=== PATIENT | female | born 1980 | race Hispanic/Latino ===

== ENCOUNTER 2017-08-03 22:15 | Emergency (ER) | payer SELFPAY ==
[~2017-08-03] VITALS: Ht 147.3 cm; Wt 63.2 kg
[~2017-08-03 22:15] MED LIST: MACROBID100 MG OR; ZOFRAN ODT4 MG PO
[2017-08-03 23:15] LABS: HEMATOCRIT 41.1 % (37.0-47.0); HEMOGLOBIN 14.4 g/dl (12.0-16.0); IMMATURE GRANULOCYTES 0.4 % (0.0-1.0); MEAN CELL VOLUME 95.6 fL CALC (80.0-100.0); MEAN CORPUSCULAR HGB 33.5 pG CALC (26.0-32.0); NEUT# 9.96 thou/uL (2.00-7.15); RED BLOOD COUNT 4.3 mill/uL (4.20-5.60); RED CELL DISTRI WIDTH 11.9 % (11.5-15.5)
[2017-08-03 23:28] LABS: ALBUMIN 4.7 g/dL (3.2-5.0); ALKALINE PHOSPHATASE 74 u/l (38-126); AMYLASE 104 u/l (30-110); ANION GAP 16 (6-22 (CALC)); BILIRUBIN, TOTAL 0.5 mg/dL (0.0-1.4); BUN 16 mg/dL (7-17); BUN/CREATININE RATIO 33 (12-20 (CALC)); CALCIUM 9.1 mg/dL (8.4-10.2); CARBON DIOXIDE 22 mmol/l (22-30); CHLORIDE 109 mmol/l (95-108); CREATININE 0.5 mg/dL (0.5-1.0); GFR > 60 ML/MIN (>=60 (CALC)); GFR FOR AFR.AMER. > 60 ML/MIN (>=60 (CALC)); GLUCOSE 96 mg/dL (65-105); LIPASE 88 u/l (23-300); POTASSIUM 3.6 mmol/l (3.5-5.1); SGOT/AST 47 u/l (14-36); SGPT/ALT 66 u/l (9-52); SODIUM 142 mmol/l (137-146)
[2017-08-03 23:51] LABS: URINE BILIRUBIN - DIPSTICK NEGATIVE (NEGATIVE); URINE BLOOD DIPSTICK TRACE-INTACT (NEGATIVE); URINE CLARITY SLIGHT CLOUDY; URINE COLOR YELLOW; URINE GLUCOSE - DIPSTICK NEGATIVE (NEGATIVE); URINE KETONE NEGATIVE (NEGATIVE); URINE LEUK ESTERASE NEGATIVE (NEGATIVE); URINE NITRITE - DIPSTICK NEGATIVE (Negative); URINE PROTEIN - DIPSTICK NEGATIVE (NEG-TRACE); URINE UROBILINOGEN - DIPSTICK 0.2 E.U./dL (0.2)
[2017-08-04] MEDS ORDERED: AUGMENTIN875TAB PO (02:31)
[2017-08-04] MEDS ORDERED: PRILOSEC20 MG PO (02:32)
[2017-08-04 02:54] VITALS: BP 122/69
== END 2017-08-04 02:51 | disposition home or self-care (01) | DRG 392 ==
LOC: ED 22:15
PROVIDERS: Emergency Medicine
DX: R10.12 Left upper quadrant pain (principal); J02.0 Streptococcal pharyngitis; R11.2 Nausea with vomiting, unspecified; R10.13 Epigastric pain; R50.9 Fever, unspecified
CPT/HCPCS: S0164

== ENCOUNTER 2023-06-03 11:39 | Emergency (ER) | payer SELFPAY ==
[~2023-06-03] VITALS: Ht 147.3 cm; Wt 70.4 kg
[2023-06-03] VITALS (11 sets, daily range): BP systolic 82–114; BP diastolic 47–72
[~2023-06-03 11:39] MED LIST changes: +AUGMENTIN875TAB PO; +PRILOSEC20 MG PO
[2023-06-03 13:31] LABS: URINE BILIRUBIN - DIPSTICK Negative (NEGATIVE); URINE COLOR Yellow; URINE GLUCOSE - DIPSTICK Negative (NEGATIVE); URINE KETONE Trace mg/dL (NEGATIVE); URINE PH 5.5 (4.5-8.0); URINE PROTEIN - DIPSTICK Trace mg/dL (NEG-TRACE); URINE SPECIFIC GRAVITY >=1.030; URINE UROBILINOGEN - DIPSTICK 0.2 E.U./dL (0.2)
[2023-06-03 13:32] LABS: URINE BLOOD DIPSTICK Small (NEGATIVE); URINE LEUK ESTERASE Negative (NEGATIVE); URINE NITRITE - DIPSTICK Negative (Negative)
[2023-06-03 13:35] LABS: URINE MUCUS RARE hpf (NONE-FEW); URINE RBC 0-2 RBC/hpf (0-5)
[2023-06-03] MEDS ORDERED: CLINICAL NUTRIENTS P PO (16:39)
== END 2023-06-03 16:53 | disposition home or self-care (01) | DRG 833 ==
LOC: ED 11:39
PROVIDERS: Family Medicine
DX: O46.8X1 Other antepartum hemorrhage, first trimester (principal); Z3A.00 Weeks of gestation of pregnancy not specified